=== PATIENT | female | born 1990 | race African-American/Black ===

== ENCOUNTER 2018-01-27 23:05 | Emergency (ER) | payer MEDICAID ==
[~2018-01-27] VITALS: Ht 157.5 cm; Wt 136.4 kg
[2018-01-27 23:13] VITALS: Ht 157.5 cm; Wt 136.4 kg
[2018-01-27 23:36] LABS: HEMATOCRIT 34.4 % (36.0-48.0); HEMOGLOBIN 11.7 g/dL (12-16); LYMPHOCYTES 36.8 % (15-50); MCH 32.3 pg (26.0-34.0); MEAN PLATELET VOLUME 8.6 fL (7.4-10.4); NEUTROPHILS 52.4 % (40-80); PLATELET COUNT 286 10x3/uL (130-400); RBC 3.62 10x6/uL (4.00-5.40); RDW 12.9 % (11.5-14.5); WBC 5.6 10x3/uL (4.8-10.8)
[2018-01-27 23:49] LABS: AMORPHOUS SEDIMENT <1+ /lpf (NONE SEEN); APPEARANCE HAZY (CLEAR); BACTERIA NONE SEEN /hpf (NONE SEEN); BILIRUBIN NEGATIVE (NEGATIVE); COLOR YELLOW (YELLOW); EPITHELIAL CELLS 0-5 /hpf (0-5); GLUCOSE NEGATIVE (NEGATIVE); KETONE NEGATIVE (NEGATIVE); NITRITE NEGATIVE (NEGATIVE); PROTEIN NEGATIVE (NEGATIVE)
[2018-01-27 23:55] LABS: ALBUMIN 2.9 g/dL (3.4-5.0); ALKALINE PHOSPHATASE 93 U/L (46-116); ALT (SGPT) 20 U/L (10-68); BILIRUBIN - TOTAL 0.55 mg/dL (0.2-1.3); CALC OSMOLALITY 275 mosm/kg (275-300); CALCIUM 8.8 mg/dL (8.5-10.1); CARBON DIOXIDE 26.3 mmol/L (21.0-32.0); CHLORIDE - SERUM 103 mmol/L (98-107); CREATININE - SERUM 0.7 mg/dL (0.6-1.3); GLUCOSE 79 mg/dL (74-106); POTASSIUM - SERUM 3.6 mmol/L (3.5-5.1); PROTEIN - SERUM 7.6 g/dL (6.4-8.2); SODIUM 140 mmol/L (136-145); UREA NITROGEN 8 mg/dL (7-18); eGFR NON AFRICAN AMERICAN > 90 mL/min (90-120)
[2018-01-28 00:16] LABS: HCG - QUANTITATIVE (MATERNAL) 10228 mIU/mL
[2018-01-28 01:12] VITALS: BP 111/64
== END 2018-01-28 01:12 | disposition home or self-care (01) ==
LOC: D.ER 23:05
PROVIDERS: Emergency Medicine
DX: O20.9 Hemorrhage in early pregnancy, unspecified (principal); Z3A.01 Less than 8 weeks gestation of pregnancy; R10.30 Lower abdominal pain, unspecified

== ENCOUNTER → 2018-06-11 15:34 | Outpatient (CLI) | payer MEDICAID ==
[2018-01-27 23:13] VITALS: BMI 55.0
== END | disposition home or self-care (01) ==
LOC: D.LDO 15:34 → D.LABREF 15:34
PROVIDERS: ATTEND Obstetrics & Gynecology
DX: O36.8120 Decreased fetal movements, second trimester, not applicable or unspecified (principal); Z3A.24 24 weeks gestation of pregnancy

== ENCOUNTER → 2018-08-27 09:38 | Outpatient (CLI) | payer MEDICAID ==
[2018-01-27 23:13] VITALS: BMI 55.0
[~2018-08-27 09:38] MED LIST: PRENAVITE1 TAB PO; TYLENOL W/CODEI1 TAB PO
[2018-08-27 10:11] LABS: APPEARANCE CLEAR (CLEAR); BILIRUBIN NEGATIVE (NEGATIVE); COLOR YELLOW (YELLOW); GLUCOSE NEGATIVE (NEGATIVE); KETONE NEGATIVE (NEGATIVE); NITRITE NEGATIVE (NEGATIVE); PROTEIN NEGATIVE (NEGATIVE); SPECIFIC GRAVITY 1.005 (1.005-1.020); UROBILINOGEN NORMAL (NORMAL)
== END | disposition home or self-care (01) ==
LOC: D.LDO 09:38
PROVIDERS: ATTEND Obstetrics & Gynecology
DX: O26.893 Other specified pregnancy related conditions, third trimester (principal); Z3A.35 35 weeks gestation of pregnancy

== ENCOUNTER 2018-09-19 05:14 | Inpatient (IN) | payer MEDICAID ==
[~2018-09-19] VITALS: Ht 157.5 cm; Wt 145.6 kg
[2018-09-19] VITALS (14 sets, daily range): BP systolic 115–143; BP diastolic 74–90; Ht 157.5 cm; Wt 145.6 kg
[2018-09-19 06:59] LABS: APPEARANCE HAZY (CLEAR); BILIRUBIN NEGATIVE (NEGATIVE); COLOR YELLOW (YELLOW); GLUCOSE NEGATIVE (NEGATIVE); KETONE NEGATIVE (NEGATIVE); NITRITE NEGATIVE (NEGATIVE); PROTEIN NEGATIVE (NEGATIVE); SPECIFIC GRAVITY 1.015 (1.005-1.020)
[2018-09-19 07:00] LABS: BACTERIA MODERATE /hpf (NONE SEEN); EPITHELIAL CELLS 0-5 /hpf (0-5); MUCUS <1+ /lpf (NONE SEEN)
[2018-09-19 07:13] LABS: HEMATOCRIT 31.2 % (36.0-48.0); HEMOGLOBIN 10.6 g/dL (12-16); MCH 31.7 pg (26.0-34.0); MCV 93.4 fL (80.0-100.0); MEAN PLATELET VOLUME 9.4 fL (7.4-10.4); RBC 3.34 10x6/uL (4.00-5.40); RDW 13.7 % (11.5-14.5); WBC 6.4 10x3/uL (4.8-10.8)
--- NOTE | 2018-09-19 08:08 | NUR ---
0749 VIABLE BABY BOY DELIVERED, CORD BLOOD DRAWN AND SENT OUT, KERLINE.
--- NOTE | 2018-09-19 08:45 | NUR ---
PALPATED FUNDUS FIRM AND MIDLINE
--- NOTE | 2018-09-19 09:00 | NUR ---
RECIEVED PT FROM RR VIA BED. RECEIVED IN REPORT THAT PT RECIEVED 2000MLS TOTAL IV INFUSION DURING PROCEDURE. NS WITH 2O UNITS OF PIT CONNECTED TO PUMP TO INFUSE AT 125ML/HR TO RIGHT HAND.
--- NOTE | 2018-09-19 09:33 | NUR ---
PT REPORTING MODERATE TO SEVERE PAIN, SEE EMAR FOR NUMERICAL RATING. 2MG DILAUDID GIVEN SLOW IVP PER ORDERS.
--- NOTE | 2018-09-19 11:30 | NUR ---
FF, U/1. LIGHT RUBRA LOCHIA NOTED ON DA PADS. NO CLOTS EXPRESSED. PT CONTINUES TO REPORT PAIN LEVEL 7 OR GREATER AND REQUESTS MORE PAIN MEDICATION. EXPLAINED THAT MED IS NOT DUE FOR ANOTHER 2 HRS. PT TEARFUL, BUT VERBALIZES UNDERSTANDING. ICE WATER PROVIDED PER REQUEST. PT TO RIGHT TILT POSITION. INCENTIVE SPIROMETER DISCUSSED WITH PT. PT DEMONSTRATES UNDERSTANDING OF USE.
--- NOTE | 2018-09-19 12:05 | NUR ---
REPORT CALLED TO DR JOYCE REGARDING PT REPORT OF PAIN DESPITE PAIN MEDICATION. ORDERS RECEIVED AND NOTED
--- NOTE | 2018-09-19 12:15 | NUR ---
4MG DILAUDID GIVEN SLOW IVP AFTER DILUTION WITH 10MLS NS. 5 MINUTES AFTER ADMINISTRATION, SPO2 NOTED TO DECREASE FROM 97% TO 93-94%/ O2 VIA NC PLACED AT 2L/MIN. O2 INCREASED BACK TO 97%.
--- NOTE | 2018-09-19 12:40 | NUR ---
PT IN HIGH FOWLERS RIGHT TILT POSITION RESTING WITH EYES CLOSED. RESP. EVEN AND UNLABORED AT 14 BREATHS PER MINUTE.
--- NOTE | 2018-09-19 15:30 | NUR ---
PT TURNED SIDE TO SIDE AND TOWELS AND CHUX CHANGED. MODERATE RUBRA LOCHIA NOTED ON DA PADS. NO CLOTS EXPRESSED. PT USES IS AT THIS TIME. PT RATES PAIN 3/10 IN INCISION. FF U/1 AND MIDLINE.
--- NOTE | 2018-09-19 17:00 | NUR ---
PT IN HIGH FOWLERS POSITION. FF U/1. SCANT RUBRA LOCHIA NOTED ON DA PADS. NO CLOTS EXPRESSED WITH MASSAGE. VSS. PT DENIES NEEDS AT THIS TIME
--- NOTE | 2018-09-19 19:31 | NUR ---
PATIENT SITTING UP IN BED HOLDING . FAMILY AT BEDSIDE. HANDED TO FATHER. ASSESSMENT AND VITAL SIGNS DONE AT THIS TIME. RESPIRATIONS AT EASE. LUNG SOUNDS CLEAR IN ALL GO. HEART REGULAR RATE AND RHYTHM. ABDOMEN SOFT AND TENDER TO TOUCH. BOWEL SOUNDS HYPOACTIVE IN BLQ. INCISION INTACT. NO REDNESS OR EDEMA NOTED. SCANT AMOUNT OF LOCHIA NOTED ON DA PAD. PADS CHANGED AT THIS TIME. +1 EDEMA NOTED TO BLE. SCD'S ON BLE ON AND WORKING. IV IN R HAND INFUSING PITOCIN @ 125 ML/HR. NO REDNESS OR EDEMA NOTED TO SITE. IYER CATHETER INTACT AND DRAINING YELLOW URINE TO GRAVITY. PATIENT STATES PAIN LEVEL 4 OUT OF 10 AT THIS TIME. BED IN LOWEST POSITION, SIDE RAILS UP X 2, C/L AND WATER WITHIN REACH.
--- NOTE | 2018-09-19 19:50 | NUR ---
INFANT IN ROOM WITH PARENTS. MOTHER HOLDING INFANT AT THIS TIME. RESPIRATIONS AT EASE. NO SIGNS OF DISTRESS NOTED. PARENTS DENY ANY NEEDS OR CONCERNS AT THIS TIME.
--- NOTE | 2018-09-19 19:52 | NUR ---
PATIENT SITTING UP IN BED. STATES PAIN 5 OUT OF 10. DILAUDID 2 MG ADMINISTERED SLOW IVP. PATIENT DENIES ANY FURTHER NEEDS. BED IN LOWEST POSITION, SIDE RAILS UP X 2, C/L AND WATER WITHIN REACH.
--- NOTE | 2018-09-19 22:00 | NUR ---
PATIENT SITTING UP IN BED HOLDING INFANT. PATIENT DENIES ANY NEEDS OR CONCERNS. NO SIGNS OF DISRESS NOTED. BED IN LOWEST POSITION, SIDE RAILS UP X 2, C/L AND WATER WITHIN REACH.
--- NOTE | 2018-09-19 22:00 | NUR ---
INFANT IN ROOM WITH PARENTS. INFANT LYING QUIETLY IN OPEN CRIB WITH EYES CLOSED. NO SIGNS OF DISTRESS NOTED. MOTHER DENIES ANY NEEDS OR CONCERNS.
--- NOTE | 2018-09-19 22:30 | NUR ---
PATIENT SITTING UP IN BED. IV SALINE LOCKED AT THIS TIME. ASSISTED PATIENT OUT OF BED. PATIENT AMBULATED IN ROOM WITH STEADY GAIT. PATIENT ASSISTED BACK TO BED. DA PAD CHANGED. BED IN LOWEST POSITION, SIDE RAILS UP X 2, C/L AND WATER WITHIN REACH.
--- NOTE | 2018-09-19 22:50 | NUR ---
PATIENT STATES PAIN 5 OUT OF 10. PRN PERCOCET 10/325 ADMINISTERED PO AT THIS TIME. PATIENT DENIES ANY FURTHER NEEDS. BED IN LOWEST POSITION, SIDE RAILS UP X 2, C/L AND WATER WITHIN REACH.
--- NOTE | 2018-09-20 00:11 | NUR ---
PATIENT LYING QUIETLY IN BED WITH EYES CLOSED. EASILY AROUSED. SCHEDULED TORADOL ADMINISTERED SLOW IVP. PATIENT DENIES ANY FURTHER NEEDS. ASSISTED PATIENT TO HER RIGHT SIDE. BED IN LOWEST POSITION, SIDE RAILS UP X 2, C/L AND WATER WITHIN REACH.
--- NOTE | 2018-09-20 02:00 | NUR ---
MOTHER SITTING UP IN BED FEEDING INFANT. DENIES ANY NEEDS OR CONCERNS. BED IN LOWEST POSITIN, SIDE RAILS UP X 2, C/L AND WATER WITHIN REACH.
[2018-09-20 02:36] VITALS: BP 117/69
--- NOTE | 2018-09-20 02:57 | NUR ---
PATIENT SITTING UP IN BED. STATES PAIN 5 OUT OF 10. PRN PERCOCET 10/325 ADMINISTERED PO AT THIS TIME. IYER CATHETER REMOVED. 400 CC'S OF DARK YELLOW URINE EMPTIED OUT OF CATHETER BAG. PATIENT INSTRUCTED TO CALL FOR ASSIST BEFORE GETTING OUT OF BED. PATIENT VERBALIZED UNDERSTANDING. DENIES ANY FURTHER NEEDS OR CONCERNS. BED IN LOWEST POSITION, SIDE RAILS UP X 2, C/L AND WATER WITHIN REACH.
--- NOTE | 2018-09-20 04:20 | NUR ---
PATIENT SITTING UP IN BED HOLDING INFANT. DENIES ANY NEEDS OR CONCERNS. NO SIGNS OF DISTRESS NOTED/ BED IN LOWEST POSITION, SIDE RAILS UP X 2, C/L AND WATER WITHIN REACH.
--- NOTE | 2018-09-20 05:59 | NUR ---
PATIENT SITTING UP IN BED. STATES PAIN 4 OUT OF 10. SCHEDULED TORADOL ADMINISTERED SLOW IVP. PATIENT ASSISTED TO BATHROOM. PATIENT AMBULATED WITH STEADY GAIT. PATIENT VOIDED 200 CC'S OF DARK YELLOW URINE. PADS CHANGED. PATIENT AMBULATED BACK TO BED WITH STEADY GAIT. BED IN LOWEST POSITIN, SIDE RAILS UP X 2, C/L AND WATER WITHIN REACH. TO NURSERY PER MOTHER REQUEST. DENIES FURTHER NEEDS.
[2018-09-20 06:06] VITALS: BP 125/77
[2018-09-20 06:22] LABS: BASOPHILS 0.1 % (0-2); EOSINOPHILS 0.8 % (0-7); HEMATOCRIT 28.2 % (36.0-48.0); HEMOGLOBIN 9.6 g/dL (12-16); IMMATURE GRANULOCYTES 0.2 % (0-5); LYMPHOCYTES 14.8 % (15-50); MCH 32.2 pg (26.0-34.0); MCV 94.6 fL (80.0-100.0); MEAN PLATELET VOLUME 9.5 fL (7.4-10.4); MONOCYTES 15.2 % (2-11); NEUTROPHILS 68.9 % (40-80); PLATELET COUNT 230 10x3/uL (130-400); RBC 2.98 10x6/uL (4.00-5.40); RDW 13.7 % (11.5-14.5)
[2018-09-20 06:28] LABS: WBC 8.6 10x3/uL (4.8-10.8)
[2018-09-20 07:14] LABS: RAPID PLASMA REAGIN Non Reactive (Non Reactive)
[2018-09-20 07:23] VITALS: BP 116/67
--- NOTE | 2018-09-20 07:24 | NUR ---
RECEIVED PT SITTING UP IN BED. AWAKE. VSS. HRRR WITHOUT AUDIBLE MURMUR. BBS CLEAR. BS X 4. ABDOMEN SOFT/NON-DISTENDED. FUNDUS FIRM AT U/1. RUBRA LOCHIA SMALL AMT. NO CLOTS OR HEAVY BLEEDING PER PT STATES. ABDOMINAL INCISION WITH DERMABOND. SMALL AREA IN MIDDLE OF INCISION WITH SMALL AMT OF SEROSANGUINOUS DISCHARGE. PERIPAD TO INCISION. NEG HOMANS' SIGN. PPP. MILD NON-PITTING EDEMA NOTED TO BLE. PT STATES INCISIONAL PAIN OF "3" ON 0-10 PAIN SCALE. PT DECLINES PAIN MED AT THIS TIME. SR UPX 2. CALL LIGHT IN REACH.
--- NOTE | 2018-09-20 08:43 | NUR ---
PT CALLS ON LIGHT. C/O INCISIONAL PAIN OF "5" ON 0-10 PAIN SCALE. PERCOCET 10/325 GIVEN PO ORDERED. PT INSTRUCTED ON MED. VERBALIZES UNDERSTANDING.
--- NOTE | 2018-09-20 08:50 | NUR ---
PT AMB TO BR. VOIDS 200 ML OF BLOOD-TINGED URINE. PERICARE DONE PER PT. PANTIES AND PADS PROVIDED TO PT.
--- NOTE | 2018-09-20 09:34 | NUR ---
PT SITTING UP IN BED. HOLDS WITH MUCH WARMTH SHOWN. STATES PAIN NOW "2" ON 0-10 PAIN SCALE. DENIES NEEDS OR C/O.
--- NOTE | 2018-09-20 10:50 | NUR ---
PT AMBUALTORY IN HALLS. STATES SHOWERED. DENIES C/O OR NEEDS.
--- NOTE | 2018-09-20 12:20 | NUR ---
PT C/O INCISIONAL PAIN OF "6" ON 0-10 PAIN SCALE. TORADOL 10 MG AND PERCOCET 10/325 GIVEN PO ORDERED. PT INSTRUCTED ON MEDS. VERBALIZES UNDERSTANDING OF ALL MEDS.
[2018-09-20 14:21] VITALS: BP 120/67
--- NOTE | 2018-09-20 14:25 | NUR ---
VSS. PT SITTING UP IN BED. STATES PAIN NOW "3" ON 0-10 PAIN SCALE. STATES PASSING GAS. 200 ML OF DARK, YELLOW URINE NOTED IN SPECIPAN. PT DENIES C/O OR NEEDS. QUESTIONS ABOUT WIC AND F/U WELDER ASSISTANT TO BE ANSWERED BY NURSERY STAFF.
--- NOTE | 2018-09-20 15:30 | NUR ---
PT SITTING UP IN BED. VISITS WITH FAMILY. DENIES C/O OR NEEDS.
--- NOTE | 2018-09-20 17:12 | NUR ---
PT SITTING UP IN BED. C/O ABDOMINAL CRAMPING OF "6" ON 0-10 PAIN SCALE. PERCOCET 10/325 GIVEN PO ORDERED. PT INSTRUCTED ON MED. VERBALIZES UNDERSTANDING.
--- NOTE | 2018-09-20 18:38 | NUR ---
PT C/O ABDOMINAL CRAMPING/ACHING OF "8" ON 0-10 PAIN SCALE. TORADOL 10 MG GIVEN PO ORDERED.
[2018-09-20 19:15] VITALS: BP 125/82
--- NOTE | 2018-09-20 19:15 | NUR ---
ASSESSMENT PER FLOW SHEET, VS OBTAINED, SALINE LOCK TO RIGHT HAND INTACT WITH NO REDNESS OR EDEMA, FF, ML, U/1, PT REPORTS LITE BLEEDING WITH NO CLOTS, BIKINI INC WITH DERMABOND CDI WITH NO DRAINAGE NOTED, DA PAD OVER INC FOR COMFORT AND MOISTURE CONTROL, PT REPORTS FLATUS, NO BM AND VOIDING WITH NO DIFFICULTY, PT INST AND DEMONSTRATED I.S. WITH GOOD EFFORT, PT RATES INC PAIN 5/10, PT DENIES NEEDS OR PAIN, IN OPEN CRIB CART AND FEMALE FRIEND AT BEDSIDE
--- NOTE | 2018-09-20 20:21 | NUR ---
PT SITTING UP ON SIDE OF BED, RATES INC PAIN 2/10, PT ENC TO AMB, PT DENIES NEEDS, IN OPEN CRIB CART AND FOB AT BEDSIDE
--- NOTE | 2018-09-20 20:33 | NUR ---
PT AMB, GAIT STEADY, TO AWNING ASSEMBLER, THEN BACK TO ROOM
--- NOTE | 2018-09-20 21:10 | NUR ---
PT SITTING UP IN BED, FOB HOLDING INFANT, INFANT TO NSY VIA OPEN CRIB CART PER THIS RN, ENC PT TO AMB DURING THIS TIME
--- NOTE | 2018-09-20 21:15 | NUR ---
PT AMB IN [place], GAIT STEADY, THEN BACK TO ROOM
--- NOTE | 2018-09-20 21:29 | NUR ---
PT BACK IN ROOM, LAYING IN BED, TO ROOM VIA OPEN CRIB CART PER THIS RN, ADM PAIN MED PER MD ORDERS, SEE EMAR, PT DENIES FURTHER NEEDS, FOB AT BEDSIDE
--- NOTE | 2018-09-20 22:41 | NUR ---
PT RESTING WITH EYES CLOSED, RESP QUIET, NO DISTRESS NOTED, LEFT UNDISTURBED AT THIS TIME, IN OPEN CRIB CART AND FOB AT BEDSISE
[2018-09-21 00:19] VITALS: BP 131/81
--- NOTE | 2018-09-21 00:19 | NUR ---
PT AWAKE, VS OBTAINED, PT RATES CRAMPING 2/10, ADM TORADOL PER MD ORDERS, SEE EMAR, PT DENIES NEEDS, FOB AT BEDSIDE
--- NOTE | 2018-09-21 01:15 | NUR ---
ROUNDS MADE. PT RESTING QUIETLY W/EYES CLOSED IN HIGH FLETCHER'S. RESP EVEN AND UNLABORED. PT LEFT UNDISTURBED AT THIS TIME.
--- NOTE | 2018-09-21 02:10 | NUR ---
ROUNDS MADE. PT AWAKE IN HIGH FLETCHER'S. PAIN AND NEEDS ASSESSED. PT REPORTS PAIN 2-3/10. NO FURTHER PAIN INTEVENTIONS REQUESTED AT THIS TIME. ICE WATER REFILLED. PT DENIES NEEDS AT THIS TIME.
--- NOTE | 2018-09-21 04:00 | NUR ---
ROUNDS MADE. PT CURRENTLY UP TO THE BR. DENIES NEEDS AT THIS TIME. NO C/O PAIN.
--- NOTE | 2018-09-21 04:52 | NUR ---
INFANT TO ROOM VIA OPEN CRIB AT THIS TIME, ID VERIFIED. PT DENIES ANY NEEDS.
--- NOTE | 2018-09-21 05:00 | NUR ---
PT RINGS CALL LIGHT REQUESTING PAIN MEDICATION FOR C/O ABD CRAMPING PAIN THAT SHE RATES 09/22. PERCOCET 10/325MG ONE TAB ADMINISTERED. PT CURRENTLY SITTING UP IN BED W/ ON CHEST. DENIES FURTHER NEEDS.
--- NOTE | 2018-09-21 06:25 | NUR ---
ROUNDS MADE. PT CURRENTLY SITTING UP FEEDING . PAIN REASSESSMEMT DONE. PT RATES PAIN /10. SCHEDULED TORADOL GIVEN. SEE EMAR. PT CURRENTLY SITTING UP IN BED FEEDING INFANT. DENIES NEEDS AT PRESENT.
--- NOTE | 2018-09-21 07:00 | NUR ---
DR JOYCE HERE TO SEE PT- NEW ORDER RECEIVED.
--- NOTE | 2018-09-21 07:07 | OP ---
PATIENT NAME: NATALIE ARCHER MEDICAL RECORD: [id number] :88 LOCATION:MIN [id number] ADMISSION DATE:09/19/18 SURGEON: JARETT JOYCE MD DATE OF OPERATION: 09/19/2018 PREOPERATIVE DIAGNOSES: 1. at 39 weeks' gestation. 2. Prior section. POSTOPERATIVE DIAGNOSES: 1. , delivered at 39 weeks. 2. Prior section. 3. Adhesions. PROCEDURE: Repeat low transverse section. SURGEON: Jarett Joyce MD MINE GEOLOGIST: Talha Jony ANESTHESIA: Spinal. FINDINGS: Viable male infant, vertex presentation, Apgars 9 and 9, weight . Ovaries are adhered to the uterus. Uterus is adhered to the anterior abdominal wall. What was visualized of the tubes is unremarkable. The bladder is unremarkable. SPECIMENS REMOVED: Placenta. SPECIMEN DISPOSITION: Discarded. ESTIMATED BLOOD LOSS: Less than or equal to 800 cc. FLUIDS: 1500 cc of lactated Ringer's. URINE OUTPUT: 40 cc of clear urine. COMPLICATIONS: None. DRAIN: Avalos to gravity. INDICATIONS: The patient is a 28-year-old parous female with a history of prior section. The patient is consented for repeat . Risks, benefits, and limitations have been discussed. The patient wishes to proceed. DESCRIPTION OF PROCEDURE: After informed consent was assured, the patient was taken to the operating room where anesthetic was obtained. The patient is now prepped and draped in the usual sterile fashion. Assessment of the anesthetic finds it to be adequate. Incision was made over the old Pfannenstiel scar and carried down to the underlying layer of the fascia. The fascia was opened in the midline and extended laterally. Rectus bellies were dissected free superiorly and inferiorly and then the peritoneum was entered sharply. Adhesions were encountered. These were taken down with Metzenbaum scissors. A DeLee all-purpose retractor was inserted once the lower segment was freed of adhesions and a low transverse hysterotomy was performed. The infant was OPERATIVE REPORT [id number] NATALIE ARCHER delivered onto the abdomen atraumatically, and cord was doubly clamped and cut, and the was passed to the attendant. Placenta delivered via Crede maneuver. The uterus was now exteriorized, cleared of all clot and debris. The uterus was closed with a running locked stitch of chromic. [id number] stitch was applied at the right corner to obtain hemostasis. Surgicel powder is now applied to the lower segment. The sponge and instrument counts correct times 1. The fascia was closed with looped PDS. Subcutaneous tissues were irrigated and bleeding vessels cauterized. The subcutaneous tissue was reapproximated with plain gut. Subcuticular stitch was applied to the skin. Dermabond was applied over the incision. Sponge, lap, and needle counts were correct times 2 at the close of this procedure. The patient will recover on labor and delivery. Humidity at the time of this procedure 65%. TRANSINT:[id number] Voice Confirmation ID: [id number] DOCUMENT ID: [id number] JARETT JOYCE MD at 0707 CC: [id number] DICTATION DATE: 09/19/18820 PILE DRIVER OPERATOR HELPER: 09/19/18 09 ADM IN [place] [id number] [place] [id number]
[2018-09-21 07:51] VITALS: BP 122/71
--- NOTE | 2018-09-21 07:59 | NUR ---
ASSESSMENT DONE. PT SITTING UP IN BED. VISITORS AT BEDSIDE. DENIES NEEDS AT THIS TIME. SMALL LOCHIA NOTED ON PAD.
[2018-09-21] MEDS ORDERED: IBUPROFEN800 MG PO (09:27)
[2018-09-21] MEDS ORDERED: PERCOCET 7.5/321 TAB PO (09:28)
--- NOTE | 2018-09-21 11:01 | NUR ---
DISCHARGE INST VERBAL AND WRITTEN GIVEN. PRESCRIPTIONS X 2 GIVEN (MOTRIN ABD PERCOCET) ALONG AITH PT MED REC AND MED INFO SHEETS. SEE PT INSTRUCTION PAGE FOR OTHER PRINTED INST GIVEN. AWHONN INST PAGE GIVEN. PFW INST AND POST SURG INST GIVEN. PT HEALTH SUMMARY GIVEN. PT ENCOURAGED TO READ INST AND FOLLOW UP WITH [facility].PT REQUESTING PAIN MEDICATION BEFORE DISCHARGE. RATES PAIN A 5 AT INCISION SITE.
--- NOTE | 2018-09-21 11:21 | NUR ---
saline lock removed- cath tip intact- pressure held and bandaide applied.
--- NOTE | 2018-09-21 12:19 | NUR ---
discharged home with . to auto via w/c.
== END 2018-09-21 11:45 | disposition home or self-care (01) | DRG 788 ==
LOC: D.LD 05:14
PROVIDERS: ADMIT Obstetrics & Gynecology; ATTEND Obstetrics & Gynecology
PROC: 10D00Z1 Extraction of Products of Conception, Low, Open Approach (ICD-10-PCS; principal; 2018-09-19 07:30)
DX: O34.211 Maternal care for low transverse scar from previous cesarean delivery (principal); Z3A.39 39 weeks gestation of pregnancy; Z37.0 Single live birth; O99.89 Other specified diseases and conditions complicating pregnancy, childbirth and the puerperium; N73.6 Female pelvic peritoneal adhesions (postinfective)